=== PATIENT | male | born 1975 | race Caucasian/White ===

== ENCOUNTER 2017-10-07 11:53 | Emergency (ER) | payer SELFPAY ==
[2017-10-07 12:00] VITALS: BP 117/77; PULSE 84; RESP 18; TEMP 37.1; O2SAT 97
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
== END 2017-10-07 13:04 | disposition home or self-care (01) ==
LOC: ER 12-02 13:59
PROVIDERS: Emergency Provider Student in an Organized Health Care Education/Training Program
DX: S01.01XA Laceration without foreign body of scalp, initial encounter (principal); W25.XXXA Contact with sharp glass, initial encounter
CPT/HCPCS: 12001; 90471

== ENCOUNTER 2019-07-17 22:29 | Emergency (ER) | payer SELFPAY ==
[2019-07-17 22:38] VITALS: BP 124/81; PULSE 68; RESP 18; TEMP 36.6; O2SAT 100
[2019-07-17] MEDS: Tetracaine 0.5% 4 ML BTL (22:55)
--- NOTE | 2019-07-17 23:59 | NUR.NOTE ---
Nursing Note: REFERAL AND DR NOTE SENT TO [facility] 07/17/19
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
[2019-07-18] MEDS: Erythromycin Ophth Oint 3.5 GM TUBE OD (00:29)
--- NOTE | 2019-07-18 00:42 | NUR.NOTE ---
Nursing Note: Ulises lens initiated at 2330 by this press writer in right eye after 2 drops tetracaine administered. 1 liter NS as ordered per provider.
== END 2019-07-18 00:25 | disposition home or self-care (01) ==
PROVIDERS: Emergency Provider Student in an Organized Health Care Education/Training Program
DX: T65.891A Toxic effect of other specified substances, accidental (unintentional), initial encounter (principal); T26.61XA Corrosion of cornea and conjunctival sac, right eye, initial encounter; Y92.511 Restaurant or cafe as the place of occurrence of the external cause
CPT/HCPCS: 99284

== ENCOUNTER 2020-06-07 18:02 | Emergency (ER) | payer SELFPAY ==
[2020-06-07 18:09] VITALS: PULSE 118; RESP 16; TEMP 36.4; O2SAT 98
[2020-06-07 18:15] VITALS: BP 127/90
--- NOTE | 2020-06-07 18:24 | ED.GENADUL_ITS ---
Discharge Plan Disposition Patient Disposition: HOME Condition: Improving Discharge Details Clinical Impression: Odontalgia Primary Care Provider: None,None ED Provider: César Grey Home Meds and New Rx's Prescriptions: New penicillin V potassium 500 mg tablet 500 mg PO TID 10 Days Qty: 30 RF: 0 Continued methadone 5 mg Tablet 5 mg PO DAILY RF: 0 Discharge Instructions Instructions: Toothache (ED) Additional Instructions: Please take penicillin as prescribed for its entire course. May use dental wax as needed for comfort. May use warm /room temperature water held in mouth for comfort. May use Tylenol and/or ibuprofen as needed for pain. Please see enclosed list of dentists and I encourage you to make a follow-up appointment to be seen. You may need extractions of teeth in the future. Return for progressive swelling, development of fever, or any other acute concerns. Medical Decision Making 44-year-old male presents with right upper dental pain. Numerous dental caries, partially broken teeth and missing teeth. He is tender overlying tooth 6 and 7. No discernible fluctuance for incision and drainage. Consented for regional anesthesia and apical block placed with 50-50 mix of lidocaine and bupivacaine. We will place patient on penicillin. He is to follow-up with dentistry. He is stable for discharge to home. HPI General Mode of arrival: ambulatory . Date/Time Provider Initiated Documentation: 06/07/20 18:02 . Limitations to Documentation: no limitations . Information obtained by: patient . History of Present Illness 44 year old M presents to the emergency department with the chief complaint of Right upper dental pain, described as moderate and similar to prior episodes, Quality is described as dull and constant, and is localized to the mouth. Patient reports no radiation. Patient started experiencing this day(s) and it has been constant. No relieving factors improve symptom(s), No exacerbating factors reported . Patient notes denies loss of appetite and shortness of breath. Related Data Home Medications Medication Instructions Recorded Confirmed methadone 5 mg PO DAILY 06/07/20 06/07/20 penicillin V potassium 500 mg PO TID 10 Days #30 tab 06/07/20 Previous Rx's Medication Instructions Recorded penicillin V potassium 500 mg PO TID 10 Days #30 tab 06/07/20 Allergies Allergy/AdvReac Type Severity Reaction Status Date / Time naloxone [From Narcan] AdvReac Unverified 10/07/17 12:04 General Stated Complaint: DentalOral LUCIA: 4 Review of Systems Narrative: No change to voice, no drooling, no difficulty breathing. Patient has otherwise been well. [facility] Social History Smoking/Tobacco Use Status: Current every day Smoking risk assessment performed?: Yes Alcohol Intake: never Drug use: Occasionally Substance use type: marijuana Do you feel safe at home: Yes Do you feel safe in your relationship?: Yes Exam Narrative Exam Narrative: GEN: awake, alert, oriented 3. Pleasant, well groomed, interactive. HEAD: Normocephalic, atraumatic ENT: Mucous membranes moist, oropharynx with numerous dental caries, partially broken teeth and missing teeth. Tender right maxilla overlying approximately 2 6 and 7. No fluctuance appreciated. External ear exam unremarkable EYES: PERRL, EOMI NECK: Full ROM, no MAGDALENO, no menigismus CHEST/RESP: No respiratory distress EXT: Full ROM, no edema, no rash Neuro: Grossly normal neurologic exam, conversant, interactive. Psych: Speech fluent, thoughts congruent, affect normal Course Vital Signs Vital signs: Vital Signs Temperature 36.4 C L 06/07/20 18:09 Pulse 118 H 06/07/20 18:09 Respiratory Rate 16 06/07/20 18:09 Pulse Oximetry 98 06/07/20 18:09 Temperature 36.4 C L 06/07/20 18:09 Temperature Source Tympanic 06/07/20 18:09 Pulse 118 H 06/07/20 18:09 Respiratory Rate 16 06/07/20 18:09 Respiratory Effort Non-Labored 06/07/20 18:09 Blood Pressure 127/90 06/07/20 18:15 Blood Pressure Position Sitting 06/07/20 18:09 Pulse Oximetry 98 06/07/20 18:09 Oxygen Delivery Method Room Air 06/07/20 18:09 Oxygen Flow Rate 0 06/07/20 18:09 Pain Level 9 06/07/20 18:16
[2020-06-07] MEDS: Ibuprofen 800 MG TAB PO (18:28)
[2020-06-07] MEDS: Penicillin V POTASSIUM 500 MG TAB, 4 TABS/BTL PO (18:28)
== END 2020-06-07 18:34 | disposition home or self-care (01) ==
LOC: ER 18:29
PROVIDERS: Emergency Provider Emergency Medicine
DX: R68.84 Jaw pain (principal)
CPT/HCPCS: 64450

== ENCOUNTER 2020-09-09 22:21 | Emergency (ER) | payer OTHER, SELFPAY ==
[2020-09-09 22:23] VITALS: BP 102/83; PULSE 68; RESP 24; TEMP 36.5; O2SAT 100
--- NOTE | 2020-09-09 22:30 | DI.RAD_ITS ---
Exam(s) XR HAND RT COMPLETE EXAM: XR HAND RT COMPLETE CLINICAL HISTORY: laceration in between 1st and 2nd. TECHNIQUE: 2D digital imaging was performed. COMPARISON: No exams were available for comparison FINDINGS: BONES: No acute fracture is present. No bony destructive lesion is seen. JOINTS: No dislocation present. SOFT TISSUE: Normal. No radiopaque foreign bodies. IMPRESSION: No acute fracture or radiopaque foreign body in the soft tissue. DATA REPOSITORY: RADIATION DOSE DELIVERED:
--- NOTE | 2020-09-09 22:52 | ED.GENADUL_ITS ---
Discharge Plan Disposition Patient Disposition: HOME Condition: Good Discharge Details Clinical Impression: Laceration Primary Care Provider: None,None ED Provider: Rossy Yancey Home Meds and New Rx's Prescriptions: No Action methadone 5 mg Tablet 5 mg PO DAILY RF: 0 Discharge Instructions Instructions: Laceration (ED) Additional Instructions: Suture removal in 12 days Keep wound clean and dry Refrain from using affected hand until your sutures are removed Should you develop redness, worsening pain, discharge such as pus, or with any new or worsening complaints, please return to the emergency room Should you have persistent numbness or diminished sensation to your left arm, I recommend following up with orthopedic Referrals: Regis Dong MD [ [facility] STAFF PHYSICIAN] - Medical Decision Making Given the mechanism of injury and patient's pain, an x-ray was ordered to exclude fracture, I do not see obvious fracture, pending the rad interpretation at this time There is no obvious evidence of tendon abnormality, the wound was probed to depth from what I could appreciate Mildly diminished sensation tear medial aspect of right, otherwise neurovascularly intact Tolerated suture placement without incident Placed in dressing Return precautions discussed and patient expressed understanding Ibuprofen and Tylenol for pain control Orthopedic referral supplied Differential Diagnosis Differential Diagnosis: Fracture, strain, contusion, abrasion Medical Records Medical records reviewed: Yes I reviewed the patient's medical records. Lab Data Lab results reviewed: Yes I reviewed the patient's lab results. HPI General Mode of arrival: ambulatory . Date/Time Provider Initiated Documentation: 09/09/20 22:37 . Limitations to Documentation: no limitations . Information obtained by: patient . HPI Narrative: This 34-year-old gentleman presents with laceration to right hand. Patient states he was helping to remove the lock with a reciprocating when at His right hand. This occurred approximately 45 minutes prior to arrival. His tetanus is reportedly up-to-date. He denies any sensation change. Related Data Home Medications Medication Instructions Recorded Confirmed methadone 5 mg PO DAILY 06/07/20 06/07/20 Allergies Allergy/AdvReac Type Severity Reaction Status Date / Time naloxone [From Narcan] AdvReac Unverified 10/07/17 12:04 General Stated Complaint: Laceration LUCIA: 3 Review of Systems Narrative: Review of systems obtained x3 aside from indicated in HPI PFSH Social History Smoking/Tobacco Use Status: Current every day Smoking risk assessment performed?: Yes Alcohol Intake: never Drug use: Occasionally Substance use type: marijuana Do you feel safe at home: Yes Do you feel safe in your relationship?: Yes Exam Extrem Other: Laceration noted to webspace between first and second digit, mildly diminished sensation to right medial aspect of thumb, strength intact to first and second digit, no visible tendon injury, brisk capillary refill Course Vital Signs Vital signs: Vital Signs Temperature 36.5 C 09/09/20 22:23 Pulse 68 09/09/20 22:23 Respiratory Rate 24 09/09/20 22:23 Blood Pressure 102/83 09/09/20 22:23 Pulse Oximetry 100 09/09/20 22:23 Temperature 36.5 C 09/09/20 22:23 Temperature Source Temporal Artery Scan 09/09/20 22:23 Pulse 68 09/09/20 22:23 Respiratory Rate 24 09/09/20 22:23 Respiratory Effort Non-Labored 09/09/20 22:25 Blood Pressure 102/83 09/09/20 22:23 Blood Pressure Position Sitting 09/09/20 22:23 Pulse Oximetry 100 09/09/20 22:23 Oxygen Delivery Method Room Air 09/09/20 22:23 Oxygen Flow Rate 0 09/09/20 22:23 Pain Level 10 09/09/20 22:23 Procedures Laceration Laceration 1: Site: hand Side (If applicable): right Size (cm): 2.5 Description: linear and irregular Depth: simple, single layer Local Anesthetic: Lidocaine 1% Pre-repair: wound explored Skin layer closed with: nylon and vicryl Size (cm): 5-0 Number of sutures: 6 Technique: simple, interrupted and other
[2020-09-09 23:29] VITALS: BP 102/83; PULSE 68; RESP 24; TEMP 36.5; O2SAT 100
[2020-09-09] MEDS: Ibuprofen 600 MG TAB PO (23:29)
--- NOTE | 2020-09-09 23:56 | DI.VRAD_ITS ---
PROCEDURE INFORMATION: Exam: XR Right Hand Exam date and time: 09/09/2020 10:32 PM Age: 44 years old Clinical indication: Other: Laceration in between 1st and 2nd digits TECHNIQUE: Imaging protocol: XR Right hand. Views: 3 or more views. COMPARISON: No relevant prior studies available. FINDINGS: Bones/joints: Bones and joints are intact. Normal osseous mineralization. Soft tissues: No soft tissue gas or radiopaque foreign body. IMPRESSION: No fracture or soft tissue radiopaque foreign body. Dictated and Authenticated by: Asher Moyer MD. Ordering:TRINITY Blair MD
== END 2020-09-09 23:30 | disposition home or self-care (01) ==
PROVIDERS: Emergency Provider Physician Assistant
DX: S61.411A Laceration without foreign body of right hand, initial encounter (principal); W27.0XXA Contact with workbench tool, initial encounter
CPT/HCPCS: 12001; 99281; 73130

== ENCOUNTER 2020-09-23 12:29 | Emergency (ER) | payer SELFPAY ==
[2020-09-23 12:44] VITALS: BP 124/69; PULSE 60; RESP 16; TEMP 36.9; O2SAT 100
--- NOTE | 2020-09-23 13:11 | ED.GENADUL_ITS ---
Discharge Plan Disposition Patient Disposition: HOME Condition: Stable Discharge Details Clinical Impression: Encounter for removal of sutures Primary Care Provider: None,None ED Provider: Lucian Cook Home Meds and New Rx's Prescriptions: Continued methadone 5 mg Tablet 60 mg PO DAILY RF: 0 Discharge Instructions Instructions: Stitches Removal (ED) Medical Decision Making 45yo m here for suture removal. Wound healed with no signs of infection. Patient does have some pain in thenar eminence. Neuro intact. Motor intact with good strength in thumb. Three sutures removed without complication. Usual and customary discharge instructions reviewed with patient. Offered COVID immunization and patient declined. HPI General Mode of arrival: ambulatory . Date/Time Provider Initiated Documentation: 09/23/20 13:11 . Limitations to Documentation: no limitations . Information obtained by: patient . HPI Narrative: 45yo m here for suture removal right hand. Wound orginally repaired here in ED on 09/09/20. Wound healing well with no complications. Does have some persistent mild pain thenar eminence. Related Data Home Medications Medication Instructions Recorded Confirmed methadone 60 mg PO DAILY 06/07/20 09/23/20 Allergies Allergy/AdvReac Type Severity Reaction Status Date / Time naloxone [From Narcan] AdvReac Unverified 09/23/20 12:46 General Stated Complaint: SutureRem LUCIA: 5 Review of Systems Musculoskeletal Musculoskeletal: Denies numbness and Denies tingling Integumentary/Breasts Skin/Breast: Reports as per HPI Neurologic Neurologic: Denies numbness and Denies tingling [facility] Social History Smoking/Tobacco Use Status: Current every day Smoking risk assessment performed?: Yes Alcohol Intake: never Drug use: Occasionally Substance use type: marijuana Do you feel safe at home: Yes Do you feel safe in your relationship?: Yes Exam Extrem Right upper extremity: hand Details: normal to inspection, normal capillary refill, neuromotor exam normal, neurosensory exam normal, tendon exam normal, vascular exam Details: radial pulse present Details: 2+, normal ROM of fingers, no swelling and other (three sutures intact rt 1st webspace posterior, wound healing with scar tissue); no unusual warmth Course Vital Signs Vital signs: Vital Signs Temperature 36.9 C 09/23/20 12:44 Pulse 60 09/23/20 12:44 Respiratory Rate 16 09/23/20 12:44 Blood Pressure 124/69 09/23/20 12:44 Pulse Oximetry 100 09/23/20 12:44 Temperature 36.9 C 09/23/20 12:44 Temperature Source Tympanic 09/23/20 12:44 Pulse 60 09/23/20 12:44 Respiratory Rate 16 09/23/20 12:44 Respiratory Effort 09/23/20 12:50 Blood Pressure 124/69 09/23/20 12:44 Pulse Oximetry 100 09/23/20 12:44 Oxygen Delivery Method Room Air 09/23/20 12:44 Oxygen Flow Rate 0 09/23/20 12:44 Pain Level 1 09/23/20 12:44
--- NOTE | 2020-09-23 13:12 | NUR.NOTE ---
Nursing Note: Referral given to Care Management to establish care/ needs help with insurance for chronic health issues, ED follow up for hand problem. KAMLESH. Lucrecia New
--- NOTE | 2020-09-23 13:34 | PDOC.ERCMPRO ---
- If Service Date Differs Date of service: 09/23/20 Time of Service: 13:34 Care Management Progress Note Pj is seen in the ED for suture removal. At the request of ED provider, CM coordinates a referral to [facility] for assistance exploring insurance options and a referral to [facility], on-call provider, to assist patient in obtaining a follow up appointment and in establishing care with a PCP.
== END 2020-09-23 13:16 | disposition home or self-care (01) ==
PROVIDERS: Emergency Provider Student in an Organized Health Care Education/Training Program
DX: S61.411D Laceration without foreign body of right hand, subsequent encounter (principal); X58.XXXD Exposure to other specified factors, subsequent encounter; Z48.02 Encounter for removal of sutures

== ENCOUNTER 2023-04-10 21:36 | Emergency (ER) | payer SELFPAY ==
[2023-04-10 21:39] VITALS: BP 119/98; PULSE 88; RESP 18; TEMP 36.5; O2SAT 100
[2023-04-10 21:43] VITALS: RESP 18
--- NOTE | 2023-04-10 21:45 | DI.RAD_ITS ---
Exam(s) XR TIB/FIB LT EXAM: XR TIB/FIB LT CLINICAL HISTORY: multiple wounds and swelling. TECHNIQUE: 2D digital imaging was performed. COMPARISON: No exams were available for comparison FINDINGS: Four views. There is diffuse soft tissue swelling throughout the calf. No radiopaque foreign body. Bone density normal. No fractures. No evidence of osteomyelitis. IMPRESSION: No acute osseous findings. Diffuse soft tissue swelling in the calf. No radiopaque foreign body. DATA REPOSITORY: RADIATION DOSE DELIVERED:
[2023-04-10] MEDS: Ketorolac 15 MG/ML VIAL IVP (22:18)
[2023-04-10] MEDS: CLINDAMYCIN 900 MG/50 ML BAG 50 MG IVPB (22:18)
[2023-04-10 22:28] LABS: Abs Immature Grans 0.02 10^3/uL (0.0-0.06); Absolute Basophil Count 0.01 10^3/uL (0.0-0.2); Absolute Eosinophil Count 0.05 10^3/uL (0.0-0.7); Absolute Monocyte Count 0.35 10^3/uL (0.1-0.8); Absolute Neutrophil Count 4.66 10^3/uL (1.2-6.7); Basophils % 0.2; Eosinophils % 0.9; HCT 30.2 % (40.0-50.0); HGB 9.8 g/dL (13.5-17.5); Immature Grans % 0.4; Lymphocytes % 8.9; MCH 26.6 pg (27.0-33.0); MCHC 32.5 % (32.0-36.0); MCV 82 fL (80-95); MPV 8.8 fL (8.0-11.0); Monocytes % 6.3; Neutrophils % 83.3; Platelet Count 183 10^3/uL (130-400); RBC 3.69 10^6/uL (4.36-5.78); RDW-SD 38.9 fL; WBC 5.59 10^3/uL (4.4-10.8)
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
[2023-04-10 22:48] LABS: ALT 30 U/L (16-63); AST 19 U/L (15-37); Alkaline Phosphatase 148 U/L (46-116); BUN 14 mg/dL (7-18); Bilirubin, Total 0.5 mg/dL (0.2-1.0); C-Reactive Protein 8.74 mg/dL (<or=0.5); Chloride 101 mmol/L (98-107); Estimated GFR 94.59 (mL/min/1.73m2); Glucose 122 mg/dL (74-106); Potassium 3.1 mmol/L (3.5-5.1); Sodium 139 mmol/L (136-145); Total Protein 7.8 g/dL (6.4-8.2)
[2023-04-10 22:59] VITALS: BP 111/54; PULSE 78; RESP 16; O2SAT 100
[2023-04-10] MEDS: Potassium Chloride 20 MEQ TABCR 40 MEQ PO (23:05)
[2023-04-10 23:21] VITALS: BP 124/63; PULSE 78; RESP 18; O2SAT 100
[2023-04-10] MEDS: Clindamycin 150 MG CAP, 12 CAPS/BTL 450 MG PO (23:21)
--- NOTE | 2023-04-10 23:23 | DI.VRAD_ITS ---
PROCEDURE INFORMATION: Exam: XR Left Tibia and Fibula Exam date and time: 04/10/2023 10:51 PM Age: 47 years old Clinical indication: Other: Multiple wounds and swelling TECHNIQUE: Imaging protocol: Radiologic exam of the left tibia and fibula. Views: 2 views. COMPARISON: No relevant prior studies available. FINDINGS: Bones/joints: No fracture or periosteal reaction is seen. Soft tissues: No radiopaque foreign body. There are scattered areas of soft tissue swelling. There are scattered lucencies in the soft tissues which may correspond to open wounds. A dedicated CT scan is recommended for further evaluation. IMPRESSION: 1. No fracture, periosteal reaction, or radiopaque foreign body is seen. 2.There are scattered lucencies in the soft tissues which may correspond to open wounds. Given the history, a dedicated CT scan is recommended for further evaluation. Dictated and Authenticated by: Casi eBdoya MD. Ordering:TRINITY Blair MD
== END 2023-04-10 23:21 | disposition home or self-care (01) ==
LOC: ER 23:48
PROVIDERS: Emergency Provider Physician Assistant
DX: L03.116 Cellulitis of left lower limb (principal); F17.200 Nicotine dependence, unspecified, uncomplicated
CPT/HCPCS: 36415; 80053; 96365; 96375; 99284; 73590; 85025; 86140; 99283; J0737; J1885

== ENCOUNTER 2023-04-14 18:53 | Emergency (ER) | payer SELFPAY ==
[2023-04-14 18:57] VITALS: BP 101/63; PULSE 75; RESP 16; TEMP 36.9
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
[2023-04-14] MEDS: Clindamycin 150 MG CAP 450 MG PO ×2 (19:19)
== END 2023-04-14 19:21 | disposition home or self-care (01) ==
PROVIDERS: Emergency Provider Emergency Medicine
DX: M79.662 Pain in left lower leg (principal); L98.499 Non-pressure chronic ulcer of skin of other sites with unspecified severity
CPT/HCPCS: 99283

== ENCOUNTER 2023-04-19 16:16 | Emergency (ER) | payer SELFPAY ==
[2023-04-19 16:13] VITALS: BP 111/92; PULSE 90; RESP 18; TEMP 37; O2SAT 94
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
--- NOTE | 2023-04-19 17:20 | DI.RAD_ITS ---
Exam(s) XR LUMBAR SPINE AP, LAT EXAM: XR LUMBAR SPINE AP, LAT CLINICAL HISTORY: back pain, lower thoracic/upper lumbar. TECHNIQUE: 2D digital imaging was performed. Five views. COMPARISON: No exams were available for comparison FINDINGS: BONES: No fracture or destructive lesion. Vertebral body heights are maintained. No facet hypertroph y identified. DISKS: Intervertebral disc spaces are maintained. ALIGNMENT: Lumbar spinal alignment is within normal limits. SOFT TISSUE: Normal. IMPRESSION: Unremarkable radiographs of the lumbar spine. DATA REPOSITORY: RADIATION DOSE DELIVERED:
--- NOTE | 2023-04-19 17:20 | DI.RAD_ITS ---
Exam(s) XR THORACIC SPINE COMPLETE EXAM: XR THORACIC SPINE COMPLETE CLINICAL HISTORY: upper lumbar/lower thoracic back pain. TECHNIQUE: 2D digital imaging was performed. Three views. COMPARISON: No exams were available for comparison FINDINGS: BONES: There is no fracture or destructive lesion. The vertebral bodies and posterior elements are un remarkable. ALIGNMENT: Within normal limits. DISKS: Interverebral disc spaces are maintained. Mild endplate osteophytes. SOFT TISSUE: Visualized lungs are clear. IMPRESSION: Mild degenerative changes. DATA REPOSITORY: RADIATION DOSE DELIVERED:
[2023-04-19] MEDS: Acetaminophen 500 MG TAB 1000 MG PO (17:46)
[2023-04-19] MEDS: Ketorolac 10 MG TAB PO (17:46)
== END 2023-04-19 17:54 ==
PROVIDERS: Emergency Provider Physician Assistant
DX: S20.229A Contusion of unspecified back wall of thorax, initial encounter (principal); W19.XXXA Unspecified fall, initial encounter; Y04.0XXA Assault by unarmed brawl or fight, initial encounter
CPT/HCPCS: 99284; 72072; 72100; 99283